=== PATIENT | female | born 1965 | race African-American/Black ===

== ENCOUNTER 2016-08-04 23:45 | Emergency (ER) | payer BC ==
[2016-08-04 23:57] VITALS: BP 155/83; PULSE 75; RESP 20; TEMP 97.9; O2SAT 100
[2016-08-05 00:31] VITALS: PULSE 90
[2016-08-05] MEDS ORDERED: ACETAMINOPHEN 500 MG CPLT PO PRN (01:30)
[2016-08-05] MEDS ORDERED: ONDANSETRON HCL 4 MG/2 ML VIAL IV PUSH PRN (01:30)
[2016-08-05] MEDS ORDERED: ACETAMINOPHEN/HYDROcodone 325 MG/5 MG TAB PO PRN (01:30)
[2016-08-05 04:00] VITALS: PULSE 78
[2016-08-05 04:09] VITALS: BP 128/78; PULSE 75; RESP 18; TEMP 98.4; O2SAT 99
[2016-08-05 08:01] VITALS: BP 136/78; PULSE 79; RESP 16; TEMP 97.9; O2SAT 96
[2016-08-05 09:43] VITALS: PULSE 63
--- NOTE | 2016-08-05 11:21 | HHI.DCPOC ---
Discharge Care Plan Diagnosis: (1) Chest wall pain Goals to Promote Your Health * To prevent worsening of your condition and complications * To maintain your health at the optimal level Directions to Meet Your Goals Take your medications as prescribed Follow your dietary instruction Follow activity as directed Keep your appointments as scheduled Take your immunizations and boosters as scheduled If your symptoms worsen call your PCP, if no PCP go to Urgent Care Center or Emergency Room Smoking is Dangerous to Your Health. Avoid second hand smoke Call the 24-hour hour crisis hotline for domestic abuse at Arthur Linton MD August 05, 2016 11:20
--- NOTE | 2016-08-05 11:43 | HHI.HP ---
HPI Primary Care Physician No Primary Care Physician Chief Complaint Chest pain History of Present Illness This is a 51-year-old female that presents to the ED in [place] and then subsequently transferred via [facility] to the chest pain center to evaluate the patient's left-sided chest discomfort that has been intermittent for the last month. She describes it as a pinching type discomfort will last less than a minute. Denies associated shortness with nausea diaphoresis. She thinks at times is related to when she is under stress. But otherwise is found nothing in particular bring on the discomfort. Denies recent illnesses. States she's had stress tests in the past. Most recently she had a chemical stress test about 2 years ago and that was normal. Denies recent illness. Denies recent travel. Review of Systems General: Patient denies fevers, chills recent, and recent travel HEENT: Patient denies headache, sore throat, difficulty swallowing. Cardiovascular: Has the chest discomfort as mentioned above. Denies sensation of heart beating rapidly or irregularly. No syncope. Respiratory: Denies shortness of breath or inspirational chest discomfort. Denies coughing wheezing or hemoptysis. GI: Patient denies nausea, vomiting, diarrhea, abdominal pain, bloody stools. Musculoskeletal: Patient denies joint pain or edema. Denies calf pain or edema. Neurovascular: Patient denies numbness, tingling, weakness in extremities. Denies headache. Endocrine: Denies polyuria and polydipsia. Hematologic: Denies easy bruising. Skin: Denies rash or itching. Past Family Social History Allergies: Coded Allergies: No Known Allergies (Unverified , 08/04/16) Past Medical History States she had hypertension in the past but has not been on medication for couple years and her blood pressures have been normal. Denies hyperlipidemia, diabetes, and CAD. Past Surgical History Right hip. 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 Reported Medications Reported Meds & Active Scripts Active No Active Prescriptions or Reported Medications Active Ordered Medications Current Medications Medications (Trade) Dose Ordered Sig/Criselda Route Start Time Stop Time Status Last Admin (Tylenol) 1,000 mg Q8H PRN PO 08/05/16 01:30 (Marion 5-325 Mg) 1 tab Q6H PRN PO 08/05/16 01:30 (Zofran Inj) 4 mg Q6H PRN IV PUSH 08/05/16 01:30 Family History Denies family history of CAD. Social History Patient is a lifetime nonsmoker. Denies illicit drugs. She drinks on average 4 -5 beers a day. Physical Exam Vital Signs Vital Signs Date Time Temp Pulse Resp B/P Pulse Ox O2 Delivery O2 Flow Rate FiO2 08/05/16 09:43 63 08/05/16 08:01 97.9 79 16 136/78 96 08/05/16 04:09 98.4 75 18 128/78 99 08/05/16 04:00 78 08/05/16 00:31 90 08/04/16 23:57 97.9 75 20 155/83 100 Physical Exam GENERAL: This is a well-nourished, well-developed patient, in no apparent distress. Patient speaks in clear complete sentences. Patient is pleasant. HEENT: Head is atraumatic and normocephalic. Neck is supple without lymphadenopathy and trachea is midline. No JVD or carotid bruits. CARDIOVASCULAR: Regular rate and rhythm without murmurs, gallops, or rubs. RESPIRATORY: Left upper chest wall is tender to palpate. This is similar to the discomforts that she has been having. Clear to auscultation. Breath sounds equal bilaterally. No wheezes, rales, or rhonchi. No use of accessory muscles. GASTROINTESTINAL: Abdomen is nontender, nondistended. Abdomen soft. No obvious pulsatile mass or bruit. No CVA tenderness. Strong femoral pulses bilaterally. Normal bowel sounds in all quadrants. MUSCULOSKELETAL: Patient is moving upper and lower extremities freely. No calf tenderness or edema, no Homans sign. Strong pulses in upper and lower extremities. NEUROLOGICAL: Patient is alert and oriented. Cranial nerves 2-12 are grossly intact. No focal deficits and speech is clear. SKIN: No rash and turgor is normal. Laboratory Laboratory Tests Test 08/05/16 00:45 Troponin I LESS THAN 0.02 Imaging Chest x-ray reveals nothing acute. Course EKGs have sinus rhythm without significant ST segment depressions or elevations. Assessment and Plan Assessment and Plan * Atypical chest pain: Patient's discomfort is atypical. Appears to be musculoskeletal. She has had serial cardiac enzymes and EKGs for ruling out purposes. She has been seen by Dr. Linton of cardiology in the chest pain center. The be no further testing. She'll be discharged home at this time with instructions follow-up local physician. Patient is stable this time. She is agreeable to this plan. Sidney Swift August 05, 2016 11:42
--- NOTE | 2016-08-05 15:31 | EKG ---
Date Performed: 08/05/2016 Time Performed: 00:19:15 PTAGE: 51 years EKG: Sinus rhythm NORMAL ECG NO PREVIOUS TRACING DOCTOR: Arthur Linton Interpretating Date/Time 08/05/2016 15:31:10
== END 2016-08-05 11:58 | disposition home or self-care (01) ==
LOC: NEDDLT 23:45 → NEPGCP 23:48 → UNDOADMOB 23:48 → NEDDLT 08-05 11:58 → UNDODISOB 08-05 11:58
DX: R07.89 Other chest pain (principal)
CPT/HCPCS: 71020; 80053; 82550; 82552; 83735; 84484; 84702; 85007; 85027; 85610; 93005; 96374; 99281; J2270